=== PATIENT | male | born 1975 | race Caucasian/White ===

== ENCOUNTER 2017-08-20 19:44 | Emergency (ER) | payer MEDICAID, SELFPAY ==
[2017-08-20 19:46] VITALS: BP 135/80; PULSE 78; RESP 14; TEMP 37.1; O2SAT 100; BMI 21.9
--- NOTE | 2017-08-20 20:21 | ED.DCSUM_ITS ---
- ER Visit Summary Date of Service: 08/20/17 Chief Complaint: Unable to get prescription filled History of Present Illness: The patient is a 42 M who had a repair of a left mandible fracture today by Dr. Rodriges. He was given a prescription for Lortab elixir. States that he has been unable to find a pharmacy that has this. He states he has sharp, throbbing pain that is 10 out of 10 severity. Is worsened by nothing and relieved by nothing. Physical Examination: Vitals: Stable. Afebrile. General: Well-nourished and well-developed. Head: Normocephalic. Large amount of soft tissue swelling to the left mandible. Is severely tender to palpation. Neck: Supple, no lymphadenopathy. No JVD. Nontender. Cardiovascular: Regular rate and rhythm. No murmurs. Respiratory: No respiratory distress. Clear to auscultation bilaterally. Abdominal: Soft, nontender, nondistended, normal bowel sounds. No guarding, rebound, or peritoneal signs. Back: Nontender. Extremities: Nontender, no edema. Skin: Normal color, no rash. Neurologic: Alert and oriented ?3. Cranial nerves II through XII are intact. Normal strength and sensation. Psych: Normal affect. Emergency Department Course and Treatment: An OARRS report was obtained and was negative. He was treated with a dose of Dilaudid IM and Zofran p.o. I offered to write for high set elixir. States that he would rather just have pills. Treatment Plan: Patient will be discharged prescription for 20 Percocet instructed to follow-up with his surgeon for further treatment of his pain. Disposition: To home in improved and stable condition. Impression: 1. Postop day #0 status post mandible fracture repair. This note was generated with [employer] dictation software. It may contain incorrect words, spelling, and punctuation that were not noted in review of the chart prior to signing ED Disposition - Plan for ED Patient: Disposition: Home or Assisted Living Chief Complaint: Other, Pain/Inj Instructions: ED Post Op Pain Prescriptions: Oxycodone HCl/Acetaminophen [Percocet 5/325] 1 - 2 tablet PO Q6H PRN PRN #20 tablet PRN Reason: Pain Referrals: Doctor,Your [STAFF PHYSICIAN] - 1-2 Days if not improving
[2017-08-20] MEDS: HYDROmorphone 1 MG/ML Syringe IM (20:32)
[2017-08-20] MEDS: Ondansetron ODT 4 MG Tablet PO (20:32)
== END 2017-08-20 21:03 | disposition home or self-care (01) ==
PROVIDERS: Emergency Provider Emergency Medicine
DX: S02.609G Fracture of mandible, unspecified, subsequent encounter for fracture with delayed healing (principal); Z98.890 Other specified postprocedural states; J45.909 Unspecified asthma, uncomplicated
CPT/HCPCS: 99283

== ENCOUNTER 2023-06-25 14:43 | Emergency (ER) | payer MEDICAID, SELFPAY ==
[2023-06-25 14:44] VITALS: BP 122/83; PULSE 78; RESP 14; TEMP 37.2; O2SAT 100; BMI 18.8
--- NOTE | 2023-06-25 16:28 | EX.ED.DYSGE1 ---
HPI History of Present Illness Chief Complaint: Fever Informant: patient Onset/Context/Timing Onset: Today and Yesterday Context: Gradual Onset Timing: Continuous Current Severity: Mild Maximum Severity: Mild Narrative Narrative: 47-year-old male no significant past medical history. States had fever and chills and sweats since last night. Denies nausea, vomiting or diarrhea. No chest pain. He does have a nonproductive cough. No abdominal pain. No diarrhea or dysuria. Fever as high as 103 this morning. No rash. Prior similar symptoms: Yes Recent Illness/Hospitalization: No PFSH PFSH Medical History no medical history no medical history Home Medications hydrocodone 10 mg-acetaminophen 300 mg/15 mL oral solution (Lortab Elixir) 11.25 ml PO Q4H PRN PRN Pain 08/20/17 [History Last Taken Unknown] oxycodone-acetaminophen 5 mg-325 mg tablet 1 - 2 tab PO Q6H PRN PRN Pain ##20 08/20/17 [Rx Last Taken Unknown] gabapentin 800 mg tablet mg 06/25/23 [History Last Taken Unknown] meloxicam 15 mg tablet mg 06/25/23 [History Last Taken Unknown] Allergy/AdvReac Type Severity Reaction Status Date / Time bee venom protein (honey bee) AdvReac Hives Verified 06/25/23 14:43 methotrexate AdvReac Rash Verified 06/25/23 14:43 prednisone AdvReac Hives Verified 06/25/23 14:43 Social History Smoking Status: Former smoker ROS ROS ED ROS Narrative Fever with chills and sweats. Denies nausea, vomiting or diarrhea. Does have a nonproductive cough. Curia. Review of Systems ROS Unobtainable: Denies due to encephalopathy Constitutional Constitutional ED: Reports chills, fever(s) and sweats Eyes Eyes: Denies blurry vision ENT ENT ED: Denies ear pain Cardiovascular Cardiovascular: Denies chest pain Respiratory/Chest Respiratory/Chest: Reports cough; Denies dyspnea Gastrointestinal Gastrointestinal: Denies abdominal pain, constipation, diarrhea, melena, nausea or vomiting Genitourinary Genitourinary ED: Denies dysuria or hematuria Musculoskeletal Musculoskeletal: Denies arthralgias Integumentary Denies abscess Neurologic Neurologic: Denies headache(s) Psychiatric Psychiatric: Denies anxiety Endocrine Endocrinology: Denies cold intolerance Hematologic/Lymphatic Hematologic/Lymphatic: Reports none Allergic/Immunologic Allergic/Immunologic ED: Denies mouth swelling, tongue swelling or urticaria EXAM Physical Exam Narrative Exam Narrative: 47-year-old male no acute distress vital signs stable afebrile. Pulse ox 100% on room air no signs hypoxia. H EENT exam unremarkable other mild dry mucous membranes. Neck nontender no lymphadenopathy. No meningismus. Lungs clear to auscultation bilaterally. Coarse cough. No rales, rhonchi or wheezing. Heart regular rhythm rate about 80 no murmur. Chest wall nontender. Abdomen soft nontender. No peritoneal signs. Back nontender. Moving all 4 extremities. Nontender. No edema. No redness or warmth. No tender or swollen joints. Full range of motion upper and lower extremities. Patient is awake and alert with no focal motor deficits. Const Vital Signs: 06/25/23 14:44 06/25/23 16:25 Temperature 98.9 F Temperature Source Temporal Pulse Rate 78 Respiratory Rate 14 Respiratory Effort Normal Non-Labored Respiratory Pattern Normal Blood Pressure 122/83 H Blood Pressure Mean 96 Pulse Ox 100 Oxygen Delivery Method Room Air Positive well nourished and well developed; Negative for obese, cachectic, contractures or unkempt General Appearance ED: well developed and NAD; Negative for unkempt, cachectic, contractures, cyanotic, diaphoretic or pallor Nutritional Appearance: Negative for cachectic or obese HEENT Reports dry mucous membranes; Denies moist mucous membranes Negative for trauma or tenderness Mouth ED: Yes dry mucous membranes Mouth: dry mucous membranes Eyes PERRL and EOMs intact bilaterally General Eye ED: Negative for pale conjunctiva, scleral icterus or other Neck no lymphadenopathy, supple and no JVD General: Negative for tenderness Lymph Lymphatic: Negative for other Chest Wall inspection of chest normal and palpation of chest normal Resp normal respiratory effort and clear to auscultation bilaterally Effort and Inspection: Negative for retractions Auscultation: Negative for rales, rhonchi or wheezes Cardio regular rate, regular rhythm, S1 normal heart sound, S2 normal heart sound and no murmurs Palpation: Negative for palpable S3 or palpable S4 Rate: Negative for bradycardia or tachycardic Rhythm: Negative for abnormal rhythm GI normal to inspection, nondistended, normoactive bowel sounds, non-tender, non-distended and no masses; Negative for hepatosplenomegaly Inspection: Negative for abdominal distention Auscultation: normoactive bowel sounds Palpation: soft; Negative for tender or guarding Bladder / Kidney Exam: No other Back/Spine no CVA tenderness General Back: Negative for CVA tenderness or other Cervical Spine: Negative for cervical spine tenderness Thoracic Spine / Upper Back: Negative for thoracic spinal tenderness Lumbar Spine / Lower Back: Negative for lumbar spinal tenderness Extremity normal to inspection General Extremety ED: Negative for edema or tenderness General Extremity: Negative for edema Neuro oriented x3 and CN's II-XII intact bilaterally Sensorium / Orientation: alert; Negative for orientation impaired, lethargic or stuporous Motor Exam: strength 5/5 throughout Psych mental status grossly normal Appearance: Negative for unkempt Attitude: No agitated Mood & Affect: Negative for depressed, anxious or tearful Skin no rashes or lesions noted, no wounds and skin turgor normal General Skin Exam: elasticity normal; Negative for jaundice or pallor Lesions: No lesion noted Rashes: No rashes noted Trauma: Negative for abrasion Wounds: Negative for wounds noted MDM MDM MDM Narrative Medical decision making narrative: 47-year-old male fever with bodyaches and a cough consistent with viral syndrome possibly influenza versus other. Treated with IV fluids. Tylenol screening labs and PCR viral studies. Repeat exam patient doing well at 7:19 PM discussed with the mother test results. We discharged home. Fluids and rest. He states does have some right hip discomfort no fall or trauma. He has full range of motion of the hip. There is no redness or swelling. No signs of a septic joint. No signs of dislocation and no history of trauma. No follow-up if it is not improving to get it x-rayed. History & Record Review Discussion w/independent historian: Patient Additional record(s) reviewed:: Prior inpatient record, Prior outpatient record and Prior ED visit Lab Data Attestation: I reviewed the patient's lab results. Lab results narrative: CBC shows a white count 3.4. H&H of 14 and 43. Platelets are slightly low at 120. Electrolytes show a gap of 4 normal BUN 11 creatinine 0.9. Glucose 99. Chest x-ray normal. Labs: Laboratory Results - last 24 hr 06/25/23 16:40 WBC 3.4 L RBC 4.48 L Hgb 14.6 Hct 43.1 MCV 96.2 H MCH 32.6 H MCHC 33.9 RDW Std Deviation 44.4 H RDW Coeff of Nikolai 12.5 Plt Count 120 L MPV 8.9 Immature Gran % (Auto) 0.600 Neut % (Auto) 60.4 Lymph % (Auto) 20.1 [place] % (Auto) 18.0 H Eos % (Auto) 0.3 Baso % (Auto) 0.6 Absolute Neuts (auto) 2.1 Absolute Lymphs (auto) 0.68 L Nucleated RBC % 0 Sodium 140 Potassium 3.8 Chloride 106 Carbon Dioxide 30.0 Anion Gap 4 L BUN 11 Creatinine 0.96 Estim Creat Clear Calc 86.73 Est GFR (MDRD) Af Amer 108 Est GFR (MDRD) Non-Af 89 BUN/Creatinine Ratio 11.4 Glucose 99 Calcium 8.1 L Radiography Chest X-Ray - ED: 1 View, Read by ED Physician, Normal, Heart, Lungs, Mediastinum, Bony Structures and No Acute Disease Diagnostic Testing: Clinical Impression(s) from Imaging Studies Chest X-Ray 06/25/23 16:45 IMPRESSION: No radiographic evidence of acute cardiopulmonary disease. Electronically Signed: Alexandre Segura MD at 17:13 EST , Chest x-ray, portable, single view interpreted both myself and radiologist shows no acute abnormality. Discharge Plan Triage Chief Complaint: Fever ED Provider: Terrence Russo Dx/Rx/DC Orders Clinical Impression: COVID Instructions: Human Coronaviruses Prescriptions: No Action hydrocodone-acetaminophen [Lortab Elixir] 1 BOTTLE solution 11.25 ml PO Q4H PRN PRN (Reason: Pain) oxycodone-acetaminophen 1 TABLET tablet 1 - 2 tab PO Q6H PRN PRN (Reason: Pain) Qty: 20 0RF meloxicam 15 mg tablet Patient Comments: TAKE 1 TABLET BY MOUTH ONCE DAILY WITH FOOD gabapentin 800 mg tablet Primary Care Provider: Care Physician,No Primary Referrals: Gris Wolf MD [Med Staff - Active Staff] - 1 Week if not improving Care Physician,No Primary [Primary Care Provider] - Activity Restrictions/Additional Instructions: Plenty of fluids and rest. Alternate Tylenol and Motrin for fever and body aches. Follow-up if not improving or return if worse.. If your hips not feeling better follow-up to get an x-ray. Off work next 5 days due to your COVID diagnosis. Disposition Disposition: Home, Self Care
[2023-06-25] MEDS: 0.9% Normal Saline (1000mL) 1,000 ML 1000 ML IV (16:39)
[2023-06-25] MEDS: Acetaminophen 500 MG Tablet 1000 MG PO (16:39)
--- OUTSIDE RECORDS SUMMARY | 2023-06-25 16:39 | XMS RPT_ITS | CCD ---
Author Name Unknown Address [address] [place] [address] Organization [facility] Care Team Providers Care Beeswax Bleacher Name Role Phone VERONICA BLANCO Unavailable Unavailable JOSELIN GIBBS Unavailable Unavailable MARY BETH RILEY Unavailable Unavailable MARY BETH RILEY Unavailable Unavailable MARCUS MCCOY Unavailable Unavailable JOSE ROBERTO CUNNINGHAM Unavailable Unavailable PROVIDER, UNKNOWN Attending Unavailable PROVIDER, UNKNOWN Admitting Unavailable TREY FUENTES MD Admitting Unavailable TREY FUENTES MD Consulting Unavailable TREY FUENTES MD Attending Unavailable DIANNA BARRIENTOS Primary Care Unavailable DIANNA BARRIENTOS Consulting Unavailable TREY FUENTES MD Consulting Unavailable TREY FUENTES MD Attending Unavailable DIANNA BARRIENTOS Primary Care Unavailable TREY FUENTES MD Admitting Unavailable ED NICHOLS DO Admitting Unavailable ED NICHOLS DO Primary Care Unavailable ED NICHOLS DO Attending Unavailable DIANNA BARRIENTOS DO Admitting Unavailable DIANNA BARRIENTOS DO Primary Care Unavailable DIANNA BARRIENTOS DO Attending Unavailable KANDI JACOB CLIENT PROJECT COORDINATOR Primary Care Unavailable KANDI JACOB CLIENT PROJECT COORDINATOR Attending Unavailable KANDI JACOB CLIENT PROJECT COORDINATOR Admitting Unavailable ED NICHOLS DO Admitting Unavailable ED NICHOLS DO Primary Care Unavailable ED NICHOLS DO Attending Unavailable CHARLES IZAGUIRRE Admitting Unavailable CHARLES IZAGUIRRE Primary Care Unavailable CHARLES IZAGUIRRE Attending Unavailable Allergies Allergy Classification Reported Allergen(s) Allergy Type Date of Onset Reaction(s) Facility Corticosteroids (1 source) predniSONE Drug Allergy [facility] Repository Methotrexate (1 source) Methotrexate Drug Allergy [facility] Repository (1 source) EPINEPHrine; Translations: [EPINEPHRINE] Drug Allergy [address] [facility] ([facility] source) Methotrexate; Translations: [METHOTREXATE] Drug Allergy [facility] (1 source) predniSONE; Translations: [PREDNISONE] Drug Allergy [facility] (1 source) BEE STING; Translations: [BEE STING] Propensity to adverse reactions (disorder) [facility] Repository Problems Active Problems Problem Classification Problem Date Documented Da te Episodic/Chronic Other aftercare (2 sources) Other terminal makeup operator (current) drug therapy; Translations: [OTH OTM CONSULTANT CURRENT DRUG THERAPY] Onset: 12-17-2020 Episodic Other inflammatory condition of skin (2 sources) Psoriasis, unspecified; Translations: [PSORIASIS UNSPECIFIED] Onset: 12-17-2020 Chronic Spondylosis; intervertebral disc disorders; other back problems (2 sources) Other spondylosis with radiculopathy, cervical region; Translations: [Other cervical disc degeneration, unspecified cervical region] Onset: 11-06-2022 Chronic Spondylosis; intervertebral disc disorders; other back problems (3 sources) Spinal stenosis, cervical region; Translations: [Spinal stenosis, cervical region] Onset: 11-06-2022 Episodic Past or Other Problems Problem Classification Problem Date Documented Da te Episodic/Chronic Other connective tissue disease (1 source) Impingement syndrome of right shoulder; Translations: [Impingement syndrome of right shoulder] Onset: 09-18-2022 Episodic Results Test Name Value Interpretation Reference Range [facility] Encounters Encounter Date Encounter Type Care Provider Facility Start: 12-12-2022 Encounter for genera l adult medical examination without abnormal findings KANDI VIDES [facility] Start: 12-12-2022 End: 12-12-2022 ambulatory KANDI VIDES [facility] Start: 11-06-2022 End: 11-06-2022 ambulatory ED [facility] Start: 09-18-2022 End: 12-29-2022 ambulatory ED [facility] Start: 03-18-2021 ambulatory TREY FUENTES MD Facility :[facility] Start: 12-17-2020 End: 12-18-2020 ambulatory TREY FUENTES MD Facility:[facility] Start: 08-19-2017 End: 08-20-2017 Evaluation and management of inpatient VERONICA BLANCO Facility:A Start: 06-10-2017 End: 06-19-2017 Patient encounter procedure UNKNOWN PROVIDER Facility:[facility] Procedures Date Procedure Procedure Detail Performing Clinician Start: 12-12-2022 PSA screening ED [facility] Payers Date Payer Category Payer Unknown [id number] 2015 [id number] 1977 Unknown [id number] 2.16.8 [id number] 1977 Unknown [id number] 2.16.8 [id number] 1977 Unknown [id number] 2.16.84 [id number] 1977 Unknown [id number] 2.16.84 [id number] 1977 Unknown [id number] 2.16.84 [id number] 1977 Unknown [id number] 2.16.84 [id number] 1977 Unknown [id number] 2.16.8 [id number] 1949 Unknown [id number] 2.16.8 [id number] Private Health Insurance [id number] Unknown [id number] Unknown [id number] Summary Purpose Family History No Family History Records FoundNo Family History Records FoundNo Family History Records FoundNo Family History Records FoundNo Family History Records FoundNo Family History Records Found Advance Directives No Advanced Directives Records FoundNo Advanced Directives Records FoundNo Advanced Directives Records FoundNo Advanced Directives Records FoundNo Advanced Directives Records FoundNo Advanced Directives Records Found Additional Source Comments (unrecognized sect ion and content) No Status Records FoundNo Status Records FoundNo Status Records FoundNo Status Records FoundNo Status Records FoundNo Status Records Found INFORMATION SOURCE (unrecogn ized section and content) DATE CREATED AUTHOR AUTHOR'S ORGANIZ ATION 08/18/2019 [facility] DATE CREATED AUTHOR AUTHOR'S ORGANIZ ATION 03/13/2020 [facility] DATE CREATED AUTHOR AUTHOR'S ORGANIZ ATION 07/22/2020 [facility] [employer] DATE CREATED AUTHOR AUTHOR'S ORGANIZ ATION 12/21/2020 [facility] DATE CREATED AUTHOR AUTHOR'S ORGANIZ ATION 12/29/2022 [facility] FOR RECORDS PERTAINING TO PATIENTS WHO ARE OR HAVE BEEN ENROLLED IN A CHEMICAL DEPENDENCY/SUBSTANCEABUSE PROGRAM, SOME INFORMATION MAY BE OMITTED. This clinical summary was aggregated from multiple sources. Caution should be exercised in using it in the provision of clinical care. This summary normalizes information from multiple sources, and as a consequence, information in this document may materially change the coding, format and clinical context of patient data. In addition, data may be omitted in some cases. CLINICAL DECISIONS SHOULD BE BASED ON THE PRIMARY CLINICAL RECORDS. [employer] provides no warranty or guarantee of the accuracy or completeness of information in this document.
--- NOTE | 2023-06-25 16:45 | RAD_ITS ---
EXAM: XR CHEST, 1 VIEW CLINICAL INDICATION: cough TECHNIQUE: Frontal view of the chest. COMPARISON: No relevant prior studies available. FINDINGS: LUNGS AND PLEURAL SPACES: Unremarkable. No consolidation or edema. No pneumothorax. No effusion. HEART: Unremarkable. Cardiac silhouette not enlarged. MEDIASTINUM: Central airways and mediastinal contour are unremarkable. BONES/JOINTS: Unremarkable. No acute fracture. SOFT TISSUES: Unremarkable. RAD/Chest 1 View (Portable) IMPRESSION: No radiographic evidence of acute cardiopulmonary disease. Electronically Signed: Alexandre Segura MD at 17:13 EST ,
[2023-06-25 16:46] LABS: Absolute Lymphocyte Count 0.68 X10^3/uL (0.83-4.51); Absolute Neutrophil Count 2.1 X10^3/uL (2.0-7.7); Basophil# 0.02 X10^3/uL; Basophil% 0.6 % (0-1); Eosinophil# 0.01 X10^3/uL; Eosinophils% 0.3 % (0-5); Hematocrit 43.1 % (40-54); Hemoglobin 14.6 g/dL (13.0-16.5); Lymphocyte # 0.68 X10^3/ul (0.83-4.51); Lymphocyte % 20.1 % (19-41); Mean Corp Hgb Conc 33.9 g/dL (32-36); Mean Corpuscular Hgb 32.6 pg (27.0-32.0); Mean Corpuscular Volume 96.2 fL (80-94); Mean Platelet Vol. 8.9 fl (6.2-12.0); Monocyte# 0.61 X10^3/uL; NRBC Flagged by Analyzer 0 % (0-5); Neutrophil # 2.05 X10^3/uL (2.7-7.7); Neutrophil % 60.4 % (47-70); Platelet Count 120 K/mm3 (150-450); RBC Distribution Width CV 12.5 % (11.6-14.6); RBC Distribution Width SD 44.4 fl (35.1-43.9); Red Blood Count 4.48 M/mm3 (4.6-6.2); White Blood Count 3.4 K/mm3 (4.4-11.0)
[2023-06-25 16:58] LABS: Anion Gap 4 (5-15); BUN 11 mg/dL (7-18); BUN/Creat Ratio 11.4 RATIO (10-20); Calcium,Total 8.1 mg/dL (8.5-10.1); Chloride 106 mmol/L (98-107); Creatinine, Serum 0.96 mg/dL (0.70-1.30); EST Glomerular Filtration Rate 89 mL/min (>60); Est Glom Filt Rate - Afr Amer 108 mL/min (>60); Estimated Creatinine Clearance 86.73 ml/min; Glucose 99 mg/dL (74-106); Potassium 3.8 mmol/L (3.5-5.1); Sodium Level 140 mmol/L (136-145)
== END 2023-06-25 19:35 | disposition home or self-care (01) ==
PROVIDERS: Emergency Provider Emergency Medicine; Visit Provider Emergency Medicine
DX: U07.1 COVID-19 (principal); Z87.891 Personal history of nicotine dependence
CPT/HCPCS: 71045; 80048; 85025; 87631; 96360; 96361; 99283; J7030; A4216